=== PATIENT | female | born 1985 | race African-American/Black ===

== ENCOUNTER 2022-07-15 02:38 | Emergency (ER) | payer SELFPAY ==
[~2022-07-15] VITALS: Ht 165.1 cm; Wt 68.0 kg
[2022-07-15] MEDS ORDERED: KETOROLAC 30MG/ML VIAL IM ONE (04:15)
[2022-07-15] MEDS ORDERED: HYDROCODONE/ACETAMINOPHEN 7.5/325MG TABLET PO ONE (04:15)
[2022-07-15] MEDS: LIDOCAINE 5% PATCH TOP SCH ×2 (04:41→05:21)
[2022-07-15 05:21] VITALS: BP 160/103
[2022-07-15] MEDS ORDERED: NAPR500T7 MT (05:37)
[2022-07-15] MEDS ORDERED: TOPUD MT (05:37)
[2022-07-15] MEDS ORDERED: LIDO700A30 TP (05:37)
== END 2022-07-15 06:17 | disposition home or self-care (01) ==
LOC: ER 02:55
DX: S39.012A Strain of muscle, fascia and tendon of lower back, initial encounter (principal); X50.1XXA Overexertion from prolonged static or awkward postures, initial encounter; Y93.89 Activity, other specified; Y92.9 Unspecified place or not applicable
CPT/HCPCS: 72100; 96372; 99283; J1885; Z7610